=== PATIENT | male | born 1940 | race Asian ===

== ENCOUNTER 2017-01-06 21:52 | Inpatient (IN) | payer MEDICARE, BC ==
[~2017-01-06] VITALS: Ht 167.6 cm; Wt 58.6 kg
[2017-01-06 22:12] LABS: GLUCOSE,POINT OF CARE 130 MG/DL (70-110)
[2017-01-06] MEDS ORDERED: LEVE500T53 PO (22:13)
[2017-01-06] MEDS ORDERED: CLOP75 PO (22:13)
[2017-01-06] MEDS ORDERED: SERT100T12 PO (22:13)
[2017-01-06] MEDS ORDERED: SEVE800 PO (22:13)
[2017-01-06] MEDS ORDERED: FOLI0.8T43 PO (22:13)
[2017-01-06] MEDS ORDERED: ASPI-1182 PO (22:13)
[2017-01-06] MEDS ORDERED: VITA1TAB22 PO (22:13)
[2017-01-06] MEDS ORDERED: VITAD1000 PO (22:13)
[2017-01-06] MEDS ORDERED: DSS100 PO (22:13)
[2017-01-06] MEDS ORDERED: ATOR40TA28 PO (22:13)
[2017-01-06] MEDS ORDERED: SODIUM CHLORIDE 0.9% 250 ML IV ONE (22:15)
[2017-01-06 22:53] LABS: BASOPHILS % (AUTO) 0.3 % (0.0-2.0); EOSINOPHILS % (AUTO) 2.9 % (1.0-6.0); LYMPHOCYTES # (AUTO) 2.1 K/uL (1.0-4.8); LYMPHOCYTES % (AUTO) 15.3 % (22.0-44.0); MEAN CORPUSCULAR HEMOGLOBIN 36.5 pg (26.0-34.0); MEAN CORPUSCULAR VOLUME 107 fL (80-100); MONOCYTES # (AUTO) 0.8 K/uL (0.1-1.0); NEUTROPHILS # (AUTO) 10.3 K/uL (1.8-7.7); NEUTROPHILS % (AUTO) 75.5 % (40.0-70.0); PLATELET COUNT (AUTO) 194 K/uL (150-450); RED BLOOD CELL COUNT(AUTO) 1.88 MIL/uL (4.50-5.90); RED CELL DISTRIBUTION WIDTH 13.6 % (11.5-14.5); WHITE BLOOD COUNT (AUTO) 13.7 K/uL (4.5-11.0)
[2017-01-06 22:56] LABS: HEMATOCRIT 20.1 % (41-53)
[2017-01-06 22:57] LABS: HEMOGLOBIN 6.9 g/dL (13.5-17.5)
[2017-01-06 23:00] LABS: PROTHROMBIN TIME 10.4 SEC (9.4-11.6)
[2017-01-06 23:05] LABS: TROPONIN I 0.04 ng/mL (0.00-0.05)
[2017-01-06 23:23] LABS: ALANINE AMINOTRANSFERASE 13 U/L (12-78); ALBUMIN 3.7 g/dL (3.4-5.0); ANION GAP 11 mmol/L (8-16); ASPARTATE AMINOTRANSFERASE 6 U/L (15-37); BILIRUBIN,TOTAL 0.5 mg/dL (0.1-1.0); CALCIUM, TOTAL 8.9 mg/dL (8.8-10.5); CARBON DIOXIDE 28 mmol/L (22-29); CHLORIDE 95 mmol/L (98-107); CREATINE KINASE MB 0.8 ng/mL (0-5); CREATINE KINASE, TOTAL 95 U/L (39-308); CREATININE 8.17 mg/dL (0.60-1.30); GLOMERULAR FILTR. RATE CALC 6 mL/min (>60); SODIUM SERUM 134 mmol/L (136-145); TOTAL PROTEIN, SERUM 6.9 g/dL (6.4-8.2); UREA NITROGEN, BLOOD 59 mg/dL (7-18)
[2017-01-06 23:26] LABS: POTASSIUM 6.1 mmol/L (3.5-5.1)
[2017-01-06] MEDS ORDERED: ALBUTEROL SULFATE 2.5 MG/0.5 ML NEB SOLUTION NEB ONE (23:30)
[2017-01-06] MEDS ORDERED: SODIUM BICARBONATE [ADULT] 8.4% 50 MEQ/50 ML SYRINGE IVP ONE (23:30)
[2017-01-07] VITALS (19 sets, daily range): BP systolic 104–144; BP diastolic 43–80
[2017-01-07] MEDS ORDERED: ACETAMINOPHEN 325 MG TABLET PO PRN (01:15)
[2017-01-07] MEDS ORDERED: 0.9% SODIUM CHLORIDE 10 ML SYRINGE IVP PRN (01:15)
[2017-01-07] MEDS ORDERED: ONDANSETRON HCL 4 MG/2 ML VIAL IVP PRN (01:15)
[2017-01-07] MEDS ORDERED: PANTOPRAZOLE SODIUM 80 MG in SODIUM CHLORIDE 0.9% 100 ML IV SCH ×2 (01:30→11:00)
[2017-01-07] MEDS ORDERED: PANTOPRAZOLE SODIUM 80 MG in SODIUM CHLORIDE 0.9% 50 ML IV ONE (01:30)
[2017-01-07] MEDS ORDERED: PROPOFOL 1% 20 ML VIAL IVP ONE (01:56)
[2017-01-07] MEDS: ALBUTEROL SULFATE 2.5 MG/0.5 ML NEB SOLUTION NEB SCH ×3 (03:00→11:00)
[2017-01-07] MEDS ORDERED: 0.9% SODIUM CHLORIDE 5 ML NEB SOLUTION NEB ONE ×3 (07:24→14:05)
[2017-01-07] MEDS ORDERED: HydrALAZINE HCL 20 MG/ML VIAL IVP PRN (08:30)
[2017-01-07] MEDS ORDERED: PANTOPRAZOLE SODIUM 40 MG/VIAL IVP SCH (09:00)
[2017-01-07] MEDS ORDERED: FUROSEMIDE 20 MG/2 ML VIAL IVP SCH (09:00)
[2017-01-07] MEDS ORDERED: DEXTROSE 50%-WATER 25 GM/50 ML SYRINGE IVP ONE (09:15)
[2017-01-07] MEDS ORDERED: INSULIN REGULAR, HUMAN 100 UNITS/ML IVP ONE (09:15)
[2017-01-07] MEDS ORDERED: CALCIUM GLUCONATE 100 MG/ML 10 ML IVP ONE (09:15)
[2017-01-07 09:36] LABS: MAGNESIUM 2.6 mg/dL (1.80-2.40); PHOSPHORUS 3.8 mg/dL (2.5-4.9)
[2017-01-07 10:25] LABS: HEMATOCRIT 22.4 % (41-53); HEMOGLOBIN 7.7 g/dL (13.5-17.5); MEAN CORPUSCULAR HEMOGLOBIN 33.7 pg (26.0-34.0); MEAN CORPUSCULAR HGB CONC 34.4 G/dL (31.0-37.0); MEAN CORPUSCULAR VOLUME 98 fL (80-100); PLATELET COUNT (AUTO) 134 K/uL (150-450); RED BLOOD CELL COUNT(AUTO) 2.29 MIL/uL (4.50-5.90); RED CELL DISTRIBUTION WIDTH 19.1 % (11.5-14.5)
[2017-01-07 10:42] LABS: CALCIUM, TOTAL 8.6 mg/dL (8.8-10.5); CREATININE 8.94 mg/dL (0.60-1.30); POTASSIUM 5.4 mmol/L (3.5-5.1)
[2017-01-07] MEDS: LevETIRAcetam 500 MG in DEXTROSE 5%-WATER 100 ML IV SCH ×2 (11:01→22:30)
[2017-01-07 11:03] LABS: EOSINOPHILS % (MANUAL) 3 % (1-6); LYMPHOCYTES % (MANUAL) 17 % (22-44); RBC MORPHOLOGY COMMENT ABNORMAL RBC MORPH; TOTAL CELLS COUNTED 100
[2017-01-07] MEDS ORDERED: SODIUM CHLORIDE 0.9% 1,000 ML IV ONE ×2 (13:43→14:00)
[2017-01-07] MEDS ORDERED: PNEUMOCOCCAL VACCINE POLYVALENT 0.5 ML VIAL [PPSV23] IM ONE (17:15)
[2017-01-07] MEDS ORDERED: INFLUENZA VIRUS VACCINE QVS 2017-18 (3YR+)/PF 60 MCG/0.5 ML SYRINGE IM ONE (17:15)
[2017-01-07] MEDS: PEG 3350/NA SULF,BICARB,CL/KCL 4000 ML SOLUTION PO ONE ×2 (17:29→22:14)
[2017-01-07 18:31] LABS: HEMATOCRIT 23.3 % (41-53); HEMOGLOBIN 8.1 g/dL (13.5-17.5)
[2017-01-07] MEDS ORDERED: DEXTROSE 50%-WATER 25 GM/50 ML SYRINGE IVP PRN (22:15)
[2017-01-07] MEDS: PANTOPRAZOLE SODIUM 40 MG/VIAL IVP SCH (22:30)
[2017-01-08 00:47] LABS: HEMATOCRIT 23.6 % (41-53); HEMOGLOBIN 7.9 g/dL (13.5-17.5)
[2017-01-08 03:53] VITALS: BP 134/60
[2017-01-08 07:57] VITALS: BP 117/56
[2017-01-08 08:34] LABS: BASOPHILS % (AUTO) 0.3 % (0.0-2.0); EOSINOPHILS % (AUTO) 7.3 % (1.0-6.0); HEMATOCRIT 22.2 % (41-53); HEMOGLOBIN 7.7 g/dL (13.5-17.5); LYMPHOCYTES # (AUTO) 0.9 K/uL (1.0-4.8); LYMPHOCYTES % (AUTO) 13.8 % (22.0-44.0); MEAN CORPUSCULAR HEMOGLOBIN 34.3 pg (26.0-34.0); MEAN CORPUSCULAR HGB CONC 34.5 G/dL (31.0-37.0); MEAN CORPUSCULAR VOLUME 99 fL (80-100); MONOCYTES # (AUTO) 0.6 K/uL (0.1-1.0); MONOCYTES % (AUTO) 8.7 % (2.0-9.0); NEUTROPHILS # (AUTO) 4.6 K/uL (1.8-7.7); NEUTROPHILS % (AUTO) 69.9 % (40.0-70.0); PLATELET COUNT (AUTO) 141 K/uL (150-450); RED BLOOD CELL COUNT(AUTO) 2.24 MIL/uL (4.50-5.90); RED CELL DISTRIBUTION WIDTH 18.8 % (11.5-14.5); WHITE BLOOD COUNT (AUTO) 6.5 K/uL (4.5-11.0)
[2017-01-08 08:48] LABS: MAGNESIUM 1.7 mg/dL (1.80-2.40); PHOSPHORUS 3.4 mg/dL (2.5-4.9)
[2017-01-08 08:52] LABS: PROTHROMBIN TIME 10.5 SEC (9.4-11.6)
[2017-01-08 09:13] LABS: BAND NEUTROPHILS % (MANUAL) 5 % (1-5); EOSINOPHILS % (MANUAL) 1 % (1-6); LYMPHOCYTES % (MANUAL) 19 % (22-44); TOTAL CELLS COUNTED 100
[2017-01-08 09:14] LABS: RBC MORPHOLOGY COMMENT ABNORMAL RBC MORPH
[2017-01-08 09:21] LABS: ALBUMIN 2.8 g/dL (3.4-5.0); CALCIUM, TOTAL 8.4 mg/dL (8.8-10.5); CREATININE 4.59 mg/dL (0.60-1.30); POTASSIUM 4.5 mmol/L (3.5-5.1); TOTAL PROTEIN, SERUM 5.7 g/dL (6.4-8.2)
[2017-01-08] MEDS: PANTOPRAZOLE SODIUM 40 MG/VIAL IVP SCH ×2 (09:25→20:14)
[2017-01-08] MEDS: LevETIRAcetam 500 MG in DEXTROSE 5%-WATER 100 ML IV SCH ×2 (09:26→22:08)
[2017-01-08] MEDS: EPOETIN ALFA 10,000 UNITS/ML VIAL SQ SCH (09:26)
[2017-01-08 11:32] VITALS: BP 149/71
[2017-01-08 14:27] LABS: HEMATOCRIT 23.5 % (41-53)
[2017-01-08 16:19] VITALS: BP 110/49
[2017-01-08 19:58] LABS: GLUCOSE,POINT OF CARE 103 MG/DL (70-110)
[2017-01-08 19:58] LABS: GLUCOSE,POINT OF CARE 125 MG/DL (70-110)
[2017-01-08 19:58] LABS: GLUCOSE,POINT OF CARE 105 MG/DL (70-110)
[2017-01-08 19:58] LABS: GLUCOSE COMMENT 1 Juice/Food/D50 Given; GLUCOSE,POINT OF CARE 86 MG/DL (70-110)
[2017-01-08 19:58] LABS: GLUCOSE,POINT OF CARE 136 MG/DL (70-110)
[2017-01-08 19:58] LABS: GLUCOSE,POINT OF CARE 90 MG/DL (70-110)
[2017-01-08 20:04] VITALS: BP 142/61
[2017-01-08] MEDS: INSULIN ASPART 100 UNITS/ML SQ PRN (21:13)
[2017-01-08 21:44] LABS: HEMATOCRIT 25.2 % (41-53); HEMOGLOBIN 8.6 g/dL (13.5-17.5)
[2017-01-08 23:06] VITALS: BP 157/72
[2017-01-09 03:50] VITALS: BP 143/61
[2017-01-09 03:52] LABS: GLUCOSE,POINT OF CARE 145 MG/DL (70-110)
[2017-01-09 06:39] LABS: INR 0.9 (0.9-1.1); PROTHROMBIN TIME 9.9 SEC (9.4-11.6)
[2017-01-09 06:48] LABS: CALCIUM, TOTAL 8.5 mg/dL (8.8-10.5); CREATININE 6.27 mg/dL (0.60-1.30); POTASSIUM 4.7 mmol/L (3.5-5.1)
[2017-01-09 07:37] LABS: BASOPHILS % (AUTO) 0.3 % (0.0-2.0); EOSINOPHILS % (AUTO) 3.7 % (1.0-6.0); HEMATOCRIT 25.9 % (41-53); HEMOGLOBIN 8.8 g/dL (13.5-17.5); LYMPHOCYTES # (AUTO) 1.2 K/uL (1.0-4.8); MEAN CORPUSCULAR HGB CONC 34.1 G/dL (31.0-37.0); MEAN CORPUSCULAR VOLUME 100 fL (80-100); MONOCYTES # (AUTO) 0.6 K/uL (0.1-1.0); MONOCYTES % (AUTO) 5.8 % (2.0-9.0); NEUTROPHILS # (AUTO) 7.7 K/uL (1.8-7.7); NEUTROPHILS % (AUTO) 78.2 % (40.0-70.0); PLATELET COUNT (AUTO) 118 K/uL (150-450); RED CELL DISTRIBUTION WIDTH 18.9 % (11.5-14.5); WHITE BLOOD COUNT (AUTO) 9.8 K/uL (4.5-11.0)
[2017-01-09 07:39] VITALS: BP 149/75
[2017-01-09 08:03] LABS: GLUCOSE COMMENT 1 Juice/Food/D50 Given; GLUCOSE,POINT OF CARE 83 MG/DL (70-110)
[2017-01-09] MEDS: PANTOPRAZOLE SODIUM 40 MG/VIAL IVP SCH ×2 (08:31→20:07)
[2017-01-09 10:20] LABS: RBC MORPHOLOGY COMMENT ABNORMAL RBC MORPH
[2017-01-09] MEDS: LevETIRAcetam 500 MG in DEXTROSE 5%-WATER 100 ML IV SCH ×2 (10:22→22:00)
[2017-01-09 11:22] LABS: GLUCOSE,POINT OF CARE 133 MG/DL (70-110)
[2017-01-09 11:52] VITALS: BP 136/68
[2017-01-09] MEDS ORDERED: SODIUM CHLORIDE 0.9% 2,000 ML IV ONE (12:16)
[2017-01-09] MEDS ORDERED: LIDOCAINE/PRILOCAINE 2.5% 30 GM CREAM TP PRN (12:30)
[2017-01-09 15:17] VITALS: BP 107/54
[2017-01-09] MEDS ORDERED: MANNITOL 25%-12.5 GM/50 ML VIAL IVP PRN (18:45)
[2017-01-09 19:51] VITALS: BP 109/59
[2017-01-10] VITALS (7 sets, daily range): BP systolic 105–120; BP diastolic 43–90
[2017-01-10 00:38] LABS: GLUCOSE,POINT OF CARE 110 MG/DL (70-110)
[2017-01-10 06:31] LABS: BASOPHILS % (AUTO) 0.3 % (0.0-2.0); EOSINOPHILS % (AUTO) 6.5 % (1.0-6.0); HEMATOCRIT 24.2 % (41-53); HEMOGLOBIN 8.2 g/dL (13.5-17.5); LYMPHOCYTES # (AUTO) 1.3 K/uL (1.0-4.8); LYMPHOCYTES % (AUTO) 20.2 % (22.0-44.0); MEAN CORPUSCULAR HEMOGLOBIN 34.2 pg (26.0-34.0); MEAN CORPUSCULAR VOLUME 100 fL (80-100); MONOCYTES # (AUTO) 0.7 K/uL (0.1-1.0); MONOCYTES % (AUTO) 10.4 % (2.0-9.0); NEUTROPHILS % (AUTO) 62.6 % (40.0-70.0); PLATELET COUNT (AUTO) 123 K/uL (150-450); RED BLOOD CELL COUNT(AUTO) 2.41 MIL/uL (4.50-5.90); RED CELL DISTRIBUTION WIDTH 18.4 % (11.5-14.5); WHITE BLOOD COUNT (AUTO) 6.3 K/uL (4.5-11.0)
[2017-01-10 07:02] LABS: GLUCOSE,POINT OF CARE 90 MG/DL (70-110)
[2017-01-10] MEDS: PANTOPRAZOLE SODIUM 40 MG/VIAL IVP SCH ×2 (09:07→20:39)
[2017-01-10] MEDS: EPOETIN ALFA 10,000 UNITS/ML VIAL SQ SCH (09:07)
[2017-01-10 09:40] LABS: RBC MORPHOLOGY COMMENT ABNORMAL RBC MORPH
[2017-01-10] MEDS: LevETIRAcetam 500 MG in DEXTROSE 5%-WATER 100 ML IV SCH ×2 (11:12→21:18)
[2017-01-10 12:19] LABS: MAGNESIUM 1.8 mg/dL (1.80-2.40); POTASSIUM 4.5 mmol/L (3.5-5.1)
[2017-01-10] MEDS ORDERED: DOCUSATE SODIUM 100 MG CAPSULE PO SCH (16:00)
[2017-01-10] MEDS: DOCUSATE SODIUM 100 MG CAPSULE PO SCH ×2 (17:08→20:39)
[2017-01-10] MEDS: INSULIN ASPART 100 UNITS/ML SQ PRN (18:18)
[2017-01-11 04:46] VITALS: BP 136/63
[2017-01-11 07:20] VITALS: BP 143/54
[2017-01-11 07:31] LABS: BASOPHILS % (AUTO) 0.5 % (0.0-2.0); EOSINOPHILS % (AUTO) 7.4 % (1.0-6.0); HEMOGLOBIN 8.3 g/dL (13.5-17.5); LYMPHOCYTES # (AUTO) 1.4 K/uL (1.0-4.8); LYMPHOCYTES % (AUTO) 17.2 % (22.0-44.0); MEAN CORPUSCULAR HEMOGLOBIN 34.8 pg (26.0-34.0); MEAN CORPUSCULAR HGB CONC 34.7 G/dL (31.0-37.0); MEAN CORPUSCULAR VOLUME 101 fL (80-100); MONOCYTES # (AUTO) 0.7 K/uL (0.1-1.0); MONOCYTES % (AUTO) 8.3 % (2.0-9.0); NEUTROPHILS # (AUTO) 5.3 K/uL (1.8-7.7); NEUTROPHILS % (AUTO) 66.6 % (40.0-70.0); RED BLOOD CELL COUNT(AUTO) 2.39 MIL/uL (4.50-5.90); RED CELL DISTRIBUTION WIDTH 18.4 % (11.5-14.5); WHITE BLOOD COUNT (AUTO) 7.9 K/uL (4.5-11.0)
[2017-01-11] MEDS: DOCUSATE SODIUM 100 MG CAPSULE PO SCH ×3 (08:06→20:33)
[2017-01-11] MEDS: PANTOPRAZOLE SODIUM 40 MG/VIAL IVP SCH ×2 (08:06→20:33)
[2017-01-11 08:28] LABS: PLATELET COUNT (AUTO) 147 K/uL (150-450)
[2017-01-11 08:29] LABS: RBC MORPHOLOGY COMMENT ABNORMAL RBC MORPH
[2017-01-11] MEDS ORDERED: MUPIROCIN CALCIUM 2% 22 GM OINTMENT NASAL SCH (09:00)
[2017-01-11] MEDS: LevETIRAcetam 500 MG in DEXTROSE 5%-WATER 100 ML IV SCH ×2 (11:04→22:00)
[2017-01-11 12:01] VITALS: BP 143/51
[2017-01-11 12:10] LABS: GLUCOSE,POINT OF CARE 104 MG/DL (70-110)
[2017-01-11] MEDS ORDERED: MANNITOL 25%-12.5 GM/50 ML VIAL IVP PRN (13:00)
[2017-01-11] MEDS ORDERED: LIDOCAINE HCL 3% CREAM 85 GM TUBE TP ONE (13:15)
[2017-01-11 15:34] VITALS: BP 128/67
[2017-01-11] MEDS: METOPROLOL TARTRATE 25 MG TABLET PO SCH ×2 (16:35→23:00)
[2017-01-11 18:08] LABS: CALCIUM, TOTAL 8.6 mg/dL (8.8-10.5); CREATININE 4.03 mg/dL (0.60-1.30); MAGNESIUM 1.7 mg/dL (1.80-2.40); POTASSIUM 3.8 mmol/L (3.5-5.1)
[2017-01-11] MEDS ORDERED: MAGNESIUM OXIDE 400 MG TABLET PO ONE (19:30)
[2017-01-11 19:43] LABS: GLUCOSE COMMENT 1 Received Meds; GLUCOSE,POINT OF CARE 142 MG/DL (70-110)
[2017-01-11 19:43] LABS: GLUCOSE,POINT OF CARE 139 MG/DL (70-110)
[2017-01-11 19:43] LABS: GLUCOSE COMMENT 1 Received Meds; GLUCOSE,POINT OF CARE 194 MG/DL (70-110)
[2017-01-11 19:52] LABS: GLUCOSE,POINT OF CARE 125 MG/DL (70-110)
[2017-01-11 20:00] VITALS: BP 112/55
[2017-01-11] MEDS: MUPIROCIN CALCIUM 2% 22 GM OINTMENT NASAL SCH (20:33)
[2017-01-11] MEDS: INSULIN ASPART 100 UNITS/ML SQ PRN (20:45)
[2017-01-12] VITALS (7 sets, daily range): BP systolic 110–162; BP diastolic 56–76
[2017-01-12 06:14] LABS: CALCIUM, TOTAL 8.5 mg/dL (8.8-10.5); CREATININE 4.86 mg/dL (0.60-1.30); MAGNESIUM 1.7 mg/dL (1.80-2.40); POTASSIUM 4.6 mmol/L (3.5-5.1)
[2017-01-12] MEDS: DOCUSATE SODIUM 100 MG CAPSULE PO SCH ×3 (09:21→20:29)
[2017-01-12] MEDS: PANTOPRAZOLE SODIUM 40 MG/VIAL IVP SCH ×2 (09:21→20:30)
[2017-01-12] MEDS: METOPROLOL TARTRATE 25 MG TABLET PO SCH ×2 (09:21→20:29)
[2017-01-12] MEDS: MUPIROCIN CALCIUM 2% 22 GM OINTMENT NASAL SCH ×2 (09:21→20:28)
[2017-01-12] MEDS: LevETIRAcetam 500 MG in DEXTROSE 5%-WATER 100 ML IV SCH ×2 (09:23→22:34)
[2017-01-12] MEDS ORDERED: MAGNESIUM SULFATE 1 GM in DEXTROSE 5%-WATER 50 ML IV ONE (11:30)
[2017-01-12 12:07] LABS: GLUCOSE,POINT OF CARE 117 MG/DL (70-110)
[2017-01-12 17:13] LABS: GLUCOSE,POINT OF CARE 99 MG/DL (70-110)
[2017-01-12 17:18] LABS: GLUCOSE,POINT OF CARE 204 MG/DL (70-110)
[2017-01-12] MEDS: INSULIN ASPART 100 UNITS/ML SQ PRN (17:59)
[2017-01-12 19:58] LABS: GLUCOSE COMMENT 1 Received Meds; GLUCOSE,POINT OF CARE 169 MG/DL (70-110)
[2017-01-12 19:58] LABS: GLUCOSE,POINT OF CARE 112 MG/DL (70-110)
[2017-01-13 04:48] VITALS: BP 129/69
[2017-01-13 07:47] VITALS: BP 117/76
[2017-01-13] MEDS: DOCUSATE SODIUM 100 MG CAPSULE PO SCH ×3 (09:17→20:42)
[2017-01-13] MEDS: METOPROLOL TARTRATE 25 MG TABLET PO SCH ×2 (09:17→20:42)
[2017-01-13] MEDS: LevETIRAcetam 500 MG in DEXTROSE 5%-WATER 100 ML IV SCH ×2 (09:17→22:28)
[2017-01-13] MEDS: PANTOPRAZOLE SODIUM 40 MG/VIAL IVP SCH ×2 (09:17→20:42)
[2017-01-13] MEDS ORDERED: SODIUM CHLORIDE 0.9% 250 ML IV ONE (09:21)
[2017-01-13] MEDS: MUPIROCIN CALCIUM 2% 22 GM OINTMENT NASAL SCH ×2 (09:22→20:43)
[2017-01-13] MEDS: EPOETIN ALFA 10,000 UNITS/ML VIAL SQ SCH (09:22)
[2017-01-13 11:28] VITALS: BP 133/88
[2017-01-13 14:47] LABS: GLUCOSE,POINT OF CARE 102 MG/DL (70-110)
[2017-01-13 14:48] LABS: GLUCOSE,POINT OF CARE 136 MG/DL (70-110)
[2017-01-13 14:48] LABS: GLUCOSE,POINT OF CARE 83 MG/DL (70-110)
[2017-01-13 15:16] VITALS: BP 143/95
[2017-01-13 19:23] VITALS: BP 107/46
[2017-01-13 20:28] LABS: GLUCOSE COMMENT 1 Received Meds; GLUCOSE,POINT OF CARE 147 MG/DL (70-110)
[2017-01-13 23:24] VITALS: BP 130/52
[2017-01-13 23:28] LABS: GLUCOSE,POINT OF CARE 122 MG/DL (70-110)
[2017-01-14 04:30] VITALS: BP 142/69
[2017-01-14 06:48] LABS: GLUCOSE,POINT OF CARE 103 MG/DL (70-110)
[2017-01-14 08:16] VITALS: BP 116/58
[2017-01-14] MEDS: PANTOPRAZOLE SODIUM 40 MG/VIAL IVP SCH (09:00)
[2017-01-14] MEDS: DOCUSATE SODIUM 100 MG CAPSULE PO SCH ×2 (09:00→16:00)
[2017-01-14] MEDS ORDERED: MANNITOL 25%-12.5 GM/50 ML VIAL IVP PRN (10:15)
[2017-01-14] MEDS ORDERED: LIDOCAINE HCL/PF 1% 2 ML VIAL ID PRN (10:45)
[2017-01-14 11:08] VITALS: BP 125/98
[2017-01-14] MEDS ORDERED: LIDOCAINE HCL/PF 1% 2 ML VIAL INJ ONE (12:00)
[2017-01-14 12:29] LABS: CALCIUM, TOTAL 8.5 mg/dL (8.8-10.5); CREATININE 2.9 mg/dL (0.60-1.30); MAGNESIUM 1.6 mg/dL (1.80-2.40); POTASSIUM 3.1 mmol/L (3.5-5.1)
[2017-01-14] MEDS: METOPROLOL TARTRATE 25 MG TABLET PO SCH (13:00)
[2017-01-14] MEDS: MUPIROCIN CALCIUM 2% 22 GM OINTMENT NASAL SCH (14:19)
[2017-01-14 14:58] LABS: GLUCOSE,POINT OF CARE 103 MG/DL (70-110)
[2017-01-14] MEDS ORDERED: SODIUM CHLORIDE 0.9% 250 ML IV ONE ×2 (15:04→16:15)
[2017-01-14] MEDS: LevETIRAcetam 500 MG in DEXTROSE 5%-WATER 100 ML IV SCH (15:39)
[2017-01-14 16:38] LABS: CALCIUM, TOTAL 7.6 mg/dL (8.8-10.5); CREATININE 3.89 mg/dL (0.60-1.30); POTASSIUM 3.7 mmol/L (3.5-5.1)
[2017-01-14 16:59] VITALS: BP 120/53
[2017-01-15] MEDS ORDERED: ASPIRIN 81 MG CHEWABLE TABLET PO SCH (09:00)
== END 2017-01-14 19:30 | DRG 82 ==
LOC: EMS 21:55 → 5S 01-07 00:24 → 5N 01-11 03:00
PROVIDERS: ADMIT Hospitalist; ATTEND Hospitalist
PROC: 30233N1 Transfusion of Nonautologous Red Blood Cells into Peripheral Vein, Percutaneous Approach (ICD-10-PCS; 2017-01-07)
PROC: 3E0234Z Introduction of Serum, Toxoid and Vaccine into Muscle, Percutaneous Approach (ICD-10-PCS; 2017-01-07)
PROC: 5A1D70Z Performance of Urinary Filtration, Intermittent, Less than 6 Hours Per Day (ICD-10-PCS; 2017-01-07)
PROC: 0DJ08ZZ Inspection of Upper Intestinal Tract, Via Natural or Artificial Opening Endoscopic (ICD-10-PCS; principal; 2017-01-07 15:00)
PROC: 5A1D70Z Performance of Urinary Filtration, Intermittent, Less than 6 Hours Per Day (ICD-10-PCS; 2017-01-09)
PROC: 5A1D70Z Performance of Urinary Filtration, Intermittent, Less than 6 Hours Per Day (ICD-10-PCS; 2017-01-11)
PROC: 5A1D70Z Performance of Urinary Filtration, Intermittent, Less than 6 Hours Per Day (ICD-10-PCS; 2017-01-14)
DX: S06.5X9A Traumatic subdural hemorrhage with loss of consciousness of unspecified duration, initial encounter (principal); N18.6 End stage renal disease; I47.2 Ventricular tachycardia; E11.22 Type 2 diabetes mellitus with diabetic chronic kidney disease; E87.5 Hyperkalemia; E83.39 Other disorders of phosphorus metabolism; I27.20 Pulmonary hypertension, unspecified; K92.2 Gastrointestinal hemorrhage, unspecified; G81.90 Hemiplegia, unspecified affecting unspecified side; I12.0 Hypertensive chronic kidney disease with stage 5 chronic kidney disease or end stage renal disease; D64.9 Anemia, unspecified; R55 Syncope and collapse; I25.10 Atherosclerotic heart disease of native coronary artery without angina pectoris; F01.50 Vascular dementia, unspecified severity, without behavioral disturbance, psychotic disturbance, mood disturbance, and anxiety; I25.5 Ischemic cardiomyopathy; E78.00 Pure hypercholesterolemia, unspecified; G40.909 Epilepsy, unspecified, not intractable, without status epilepticus; G47.33 Obstructive sleep apnea (adult) (pediatric); I49.3 Ventricular premature depolarization; K59.00 Constipation, unspecified; W18.39XA Other fall on same level, initial encounter; W19.XXXA Unspecified fall, initial encounter; Z74.01 Bed confinement status; Z79.82 Long term (current) use of aspirin; Z95.5 Presence of coronary angioplasty implant and graft; Z99.2 Dependence on renal dialysis; Z22.322 Carrier or suspected carrier of Methicillin resistant Staphylococcus aureus; Z23 Encounter for immunization; Z88.8 Allergy status to other drugs, medicaments and biological substances; Y93.89 Activity, other specified; Y92.89 Other specified places as the place of occurrence of the external cause; Y99.8 Other external cause status
CPT/HCPCS: 36430; 70450; 72125; 82271; 82962; 83540; 83550; 83735; 84100; 84132; 85007; 85014; 85018; 85576; 86850; 86900; 86901; 86920; 87040; 87081; 87340; 90935; 93005; 93306; 94640; 96361; 96374; 97116; 97162; 97166; 97530; 99291; C9113; J0360; J0610; J0712; J0885; J1815; J1940; J2704; J3475; J3490; J7030; J7050; J7060; P9016

== ENCOUNTER 2017-02-20 11:45 | Inpatient (IN) | payer MEDICARE, BC ==
[~2017-02-20] VITALS: Ht 170.2 cm; Wt 56.3 kg
[~2017-02-20 11:45] MED LIST: ATOR40TA28 PO; DSS100 PO; FOLI0.8T43 PO; LEVE500T53 PO; SERT100T12 PO; SEVE800 PO; VITA1TAB22 PO; VITAD1000 PO
[2017-02-20] MEDS ORDERED: METO25 PO (11:50)
[2017-02-20] MEDS ORDERED: PANT40TA25 PO (11:50)
[2017-02-20] MEDS ORDERED: ASPIRIN 325 MG EC TABLET PO ONE (12:00)
[2017-02-20 12:04] LABS: BASOPHILS # (AUTO) 0.01 K/uL (0.00-0.20); BASOPHILS % (AUTO) 0.1 % (0.0-2.0); EOSINOPHILS # (AUTO) 0.54 K/uL (0.00-0.70); EOSINOPHILS % (AUTO) 5.15 % (1.0-6.0); HEMATOCRIT 29.4 % (41-53); HEMOGLOBIN 9.6 g/dL (13.5-17.5); LYMPHOCYTES # (AUTO) 0.9 K/uL (1.0-4.8); LYMPHOCYTES % (AUTO) 8.3 % (22.0-44.0); MEAN CORPUSCULAR HGB CONC 32.6 G/dL (31.0-37.0); MEAN CORPUSCULAR VOLUME 101 fL (80-100); MONOCYTES # (AUTO) 0.9 K/uL (0.1-1.0); MONOCYTES % (AUTO) 8.6 % (2.0-9.0); NEUTROPHILS # (AUTO) 8.2 K/uL (1.8-7.7); NEUTROPHILS % (AUTO) 77.8 % (40.0-70.0); PLATELET COUNT (AUTO) 252 K/uL (150-450); RED CELL DISTRIBUTION WIDTH 15.4 % (11.5-14.5); WHITE BLOOD COUNT (AUTO) 10.6 K/uL (4.5-11.0)
[2017-02-20 12:14] LABS: PROTHROMBIN TIME 10.6 SEC (9.4-11.6)
[2017-02-20 12:17] LABS: ANION GAP 8 mmol/L (8-16); CALCIUM, TOTAL 8.1 mg/dL (8.8-10.5); CARBON DIOXIDE 30 mmol/L (22-29); CHLORIDE 94 mmol/L (98-107); CREATININE 7.45 mg/dL (0.60-1.30); GLOMERULAR FILTR. RATE CALC 7 mL/min (>60); POTASSIUM 4.3 mmol/L (3.5-5.1); SODIUM SERUM 132 mmol/L (136-145); UREA NITROGEN, BLOOD 27 mg/dL (7-18)
[2017-02-20 12:21] LABS: ALANINE AMINOTRANSFERASE 11 U/L (12-78); ALBUMIN 2.6 g/dL (3.4-5.0); ASPARTATE AMINOTRANSFERASE 6 U/L (15-37); B-TYPE NATRIURETIC PEPTIDE 724 pg/mL (0-100); BILIRUBIN,TOTAL 0.4 mg/dL (0.1-1.0); CREATINE KINASE, TOTAL 28 U/L (39-308); TOTAL PROTEIN, SERUM 6.9 g/dL (6.4-8.2)
[2017-02-20 12:37] LABS: RBC MORPHOLOGY COMMENT ABNORMAL RBC MORPH
[2017-02-20] MEDS ORDERED: ACETAMINOPHEN 325 MG TABLET PO PRN ×2 (13:45→15:00)
[2017-02-20] MEDS ORDERED: 0.9% SODIUM CHLORIDE 10 ML SYRINGE IVP PRN (13:45)
[2017-02-20] MEDS ORDERED: HYDROCODONE/ACETAMINOPHEN 5-325 MG TABLET PO PRN (15:00)
[2017-02-20] MEDS ORDERED: MORPHINE SULFATE 2 MG/ML SYRINGE IVP PRN (15:00)
[2017-02-20] MEDS ORDERED: ZOLPIDEM TARTRATE 5 MG TABLET PO PRN (15:00)
[2017-02-20] MEDS ORDERED: BISACODYL 10 MG RECTAL RECTAL SUPPOSITORY PR PRN (15:00)
[2017-02-20] MEDS ORDERED: ONDANSETRON HCL 4 MG/2 ML VIAL IVP PRN (15:00)
[2017-02-20] MEDS ORDERED: MAGNESIUM HYDROXIDE SUSPENSION 30 ML UDCUP PO PRN (15:00)
[2017-02-20] MEDS ORDERED: LIDOCAINE/PRILOCAINE 2.5% 30 GM CREAM TP PRN (15:45)
[2017-02-20] MEDS ORDERED: MANNITOL 25%-12.5 GM/50 ML VIAL IVP PRN (16:30)
[2017-02-20 19:49] VITALS: BP 151/75
[2017-02-20] MEDS: METOPROLOL TARTRATE 25 MG TABLET PO SCH (20:47)
[2017-02-20] MEDS: DOCUSATE SODIUM 100 MG CAPSULE PO SCH (20:47)
[2017-02-20] MEDS: ATORVASTATIN CALCIUM 40 MG TABLET PO SCH (20:47)
[2017-02-20] MEDS: LevETIRAcetam 500 MG TABLET PO SCH (20:47)
[2017-02-20] MEDS: SEVELAMER CARBONATE 800 MG TABLET PO SCH (20:54)
[2017-02-20] MEDS: NITROGLYCERIN 2% (1 GM=INCH) PACKET TP SCH (20:57)
[2017-02-20] MEDS: HEPARIN SODIUM,PORCINE 5,000 UNITS/ML VIAL SQ SCH (20:58)
[2017-02-20] MEDS ORDERED: ATORVASTATIN CALCIUM 40 MG TABLET PO SCH (21:00)
[2017-02-20] MEDS ORDERED: METOPROLOL TARTRATE 25 MG TABLET PO SCH (21:00)
[2017-02-21] VITALS (10 sets, daily range): BP systolic 99–141; BP diastolic 50–77
[2017-02-21] MEDS: HEPARIN SODIUM,PORCINE 5,000 UNITS/ML VIAL SQ SCH ×4 (00:27→23:58)
[2017-02-21] MEDS: NITROGLYCERIN 2% (1 GM=INCH) PACKET TP SCH ×4 (00:27→23:58)
[2017-02-21 07:37] LABS: BASOPHILS % (AUTO) 0.3 % (0.0-2.0); EOSINOPHILS % (AUTO) 7.5 % (1.0-6.0); HEMATOCRIT 28.8 % (41-53); HEMOGLOBIN 9.7 g/dL (13.5-17.5); LYMPHOCYTES # (AUTO) 0.9 K/uL (1.0-4.8); LYMPHOCYTES % (AUTO) 11.2 % (22.0-44.0); MEAN CORPUSCULAR HEMOGLOBIN 33.5 pg (26.0-34.0); MEAN CORPUSCULAR HGB CONC 33.7 G/dL (31.0-37.0); MEAN CORPUSCULAR VOLUME 100 fL (80-100); MONOCYTES # (AUTO) 0.9 K/uL (0.1-1.0); MONOCYTES % (AUTO) 10.8 % (2.0-9.0); NEUTROPHILS # (AUTO) 5.8 K/uL (1.8-7.7); NEUTROPHILS % (AUTO) 70.2 % (40.0-70.0); PLATELET COUNT (AUTO) 230 K/uL (150-450); RED CELL DISTRIBUTION WIDTH 14.9 % (11.5-14.5); WHITE BLOOD COUNT (AUTO) 8.2 K/uL (4.5-11.0)
[2017-02-21] MEDS: SEVELAMER CARBONATE 800 MG TABLET PO SCH ×3 (08:00→20:11)
[2017-02-21 08:07] LABS: ALBUMIN 2.6 g/dL (3.4-5.0); BILIRUBIN,TOTAL 0.6 mg/dL (0.1-1.0); CALCIUM, TOTAL 8.5 mg/dL (8.8-10.5); CHOL/HDL RATIO 1.9 (4.2-7.3); CREATININE 5.17 mg/dL (0.60-1.30); POTASSIUM 4.4 mmol/L (3.5-5.1); TOTAL PROTEIN, SERUM 6.9 g/dL (6.4-8.2)
[2017-02-21 08:25] LABS: HEMOGLOBIN A1C 5.2 % (4.5-6.2)
[2017-02-21] MEDS: -HEMODIALYSIS NOTE- MISC SCH (09:00)
[2017-02-21] MEDS ORDERED: ASPIRIN 81 MG CHEWABLE TABLET PO SCH (09:00)
[2017-02-21] MEDS ORDERED: REGADENOSON 0.4 MG/5 ML PF SYRINGE IVP ONE ×2 (11:12→14:19)
[2017-02-21] MEDS ORDERED: SESTAMIBI TC99M/UD ISOTOPE 1 EA INJ INJ ONE ×2 (11:20→13:40)
[2017-02-21] MEDS: DOCUSATE SODIUM 100 MG CAPSULE PO SCH ×2 (16:01→20:11)
[2017-02-21] MEDS: SERTRALINE HCL 100 MG TABLET PO SCH (16:02)
[2017-02-21] MEDS: LevETIRAcetam 500 MG TABLET PO SCH ×2 (16:02→20:11)
[2017-02-21] MEDS: VITAMIN B COMP/VIT C/FOLIC ACID CAPSULE PO SCH (16:02)
[2017-02-21] MEDS: PANTOPRAZOLE SODIUM 40 MG DR TABLET PO SCH (16:02)
[2017-02-21] MEDS: CHOLECALCIFEROL (VIT D3) 1,000 UNITS TABLET PO SCH (16:02)
[2017-02-21] MEDS: METOPROLOL TARTRATE 25 MG TABLET PO SCH ×2 (16:03→23:58)
[2017-02-21] MEDS: ATORVASTATIN CALCIUM 40 MG TABLET PO SCH (20:11)
[2017-02-22 03:54] VITALS: BP 135/70
[2017-02-22 06:30] LABS: BASOPHILS % (AUTO) 0.4 % (0.0-2.0); EOSINOPHILS % (AUTO) 4.7 % (1.0-6.0); HEMATOCRIT 29.5 % (41-53); HEMOGLOBIN 9.9 g/dL (13.5-17.5); LYMPHOCYTES % (AUTO) 9.1 % (22.0-44.0); MEAN CORPUSCULAR HEMOGLOBIN 33.2 pg (26.0-34.0); MEAN CORPUSCULAR HGB CONC 33.4 G/dL (31.0-37.0); MEAN CORPUSCULAR VOLUME 99 fL (80-100); MONOCYTES % (AUTO) 8.8 % (2.0-9.0); NEUTROPHILS # (AUTO) 8.3 K/uL (1.8-7.7); PLATELET COUNT (AUTO) 271 K/uL (150-450); RED BLOOD CELL COUNT(AUTO) 2.97 MIL/uL (4.50-5.90); RED CELL DISTRIBUTION WIDTH 15.2 % (11.5-14.5); WHITE BLOOD COUNT (AUTO) 10.8 K/uL (4.5-11.0)
[2017-02-22 06:52] LABS: CALCIUM, TOTAL 8.8 mg/dL (8.8-10.5); CREATININE 6.79 mg/dL (0.60-1.30); POTASSIUM 4.3 mmol/L (3.5-5.1)
[2017-02-22 07:17] VITALS: BP 157/52
[2017-02-22] MEDS ORDERED: EPOETIN ALFA 10,000 UNITS/ML VIAL SQ SCH (09:00)
[2017-02-22] MEDS: -HEMODIALYSIS NOTE- MISC SCH (09:00)
[2017-02-22 11:37] VITALS: BP 128/48
[2017-02-22] MEDS: DOCUSATE SODIUM 100 MG CAPSULE PO SCH ×2 (13:15→20:34)
[2017-02-22] MEDS: PANTOPRAZOLE SODIUM 40 MG DR TABLET PO SCH (13:15)
[2017-02-22] MEDS: HEPARIN SODIUM,PORCINE 5,000 UNITS/ML VIAL SQ SCH ×2 (13:15→16:00)
[2017-02-22] MEDS: CHOLECALCIFEROL (VIT D3) 1,000 UNITS TABLET PO SCH (13:15)
[2017-02-22] MEDS: VITAMIN B COMP/VIT C/FOLIC ACID CAPSULE PO SCH (13:15)
[2017-02-22] MEDS: LevETIRAcetam 500 MG TABLET PO SCH ×2 (13:15→20:33)
[2017-02-22] MEDS: ASPIRIN 81 MG EC TABLET PO SCH (13:15)
[2017-02-22] MEDS: SEVELAMER CARBONATE 800 MG TABLET PO SCH ×3 (13:16→17:53)
[2017-02-22] MEDS: NITROGLYCERIN 2% (1 GM=INCH) PACKET TP SCH ×2 (13:16→17:53)
[2017-02-22] MEDS: SERTRALINE HCL 100 MG TABLET PO SCH (13:16)
[2017-02-22 15:39] VITALS: BP 105/50
[2017-02-22 19:40] VITALS: BP 110/68
[2017-02-22] MEDS: METOPROLOL TARTRATE 25 MG TABLET PO SCH (20:33)
[2017-02-22] MEDS: ATORVASTATIN CALCIUM 40 MG TABLET PO SCH (20:33)
[2017-02-23] MEDS: NITROGLYCERIN 2% (1 GM=INCH) PACKET TP SCH ×2 (00:04→07:56)
[2017-02-23] MEDS: HEPARIN SODIUM,PORCINE 5,000 UNITS/ML VIAL SQ SCH ×2 (00:04→07:56)
[2017-02-23 00:16] VITALS: BP 109/51
[2017-02-23 06:02] VITALS: BP 128/69
[2017-02-23] MEDS ORDERED: ASPI81 PO (07:26)
[2017-02-23] MEDS ORDERED: EPOE10I SQ (07:27)
[2017-02-23] MEDS ORDERED: HEPA500018 SQ (07:29)
[2017-02-23] MEDS ORDERED: NTP TD (07:30)
[2017-02-23] MEDS ORDERED: BISA5TAB12 PR (07:32)
[2017-02-23] MEDS ORDERED: HYDR-309 PO (07:33)
[2017-02-23] MEDS ORDERED: MOM30 PO (07:34)
[2017-02-23] MEDS ORDERED: ZOLP5 PO (07:35)
[2017-02-23] MEDS: SEVELAMER CARBONATE 800 MG TABLET PO SCH ×2 (07:55→12:06)
[2017-02-23] MEDS: LevETIRAcetam 500 MG TABLET PO SCH (07:55)
[2017-02-23] MEDS: VITAMIN B COMP/VIT C/FOLIC ACID CAPSULE PO SCH (07:55)
[2017-02-23] MEDS: ASPIRIN 81 MG EC TABLET PO SCH (07:55)
[2017-02-23] MEDS: DOCUSATE SODIUM 100 MG CAPSULE PO SCH (07:55)
[2017-02-23] MEDS: METOPROLOL TARTRATE 25 MG TABLET PO SCH (07:55)
[2017-02-23] MEDS: PANTOPRAZOLE SODIUM 40 MG DR TABLET PO SCH (07:56)
[2017-02-23] MEDS: CHOLECALCIFEROL (VIT D3) 1,000 UNITS TABLET PO SCH (07:56)
[2017-02-23] MEDS: SERTRALINE HCL 100 MG TABLET PO SCH (07:57)
[2017-02-23 08:08] LABS: ALBUMIN 2.5 g/dL (3.4-5.0); BILIRUBIN,TOTAL 0.4 mg/dL (0.1-1.0); CREATININE 5.16 mg/dL (0.60-1.30); MAGNESIUM 1.9 mg/dL (1.80-2.40); POTASSIUM 4.7 mmol/L (3.5-5.1); TOTAL PROTEIN, SERUM 6.8 g/dL (6.4-8.2)
[2017-02-23 08:17] VITALS: BP 106/70
[2017-02-23 08:25] LABS: BASOPHILS # (AUTO) 0.06 K/uL (0.00-0.20); BASOPHILS % (AUTO) 0.8 % (0.0-2.0); EOSINOPHILS # (AUTO) 0.49 K/uL (0.00-0.70); EOSINOPHILS % (AUTO) 5.77 % (1.0-6.0); HEMATOCRIT 29.2 % (41-53); HEMOGLOBIN 9.5 g/dL (13.5-17.5); LYMPHOCYTES # (AUTO) 1.2 K/uL (1.0-4.8); LYMPHOCYTES % (AUTO) 14.1 % (22.0-44.0); MEAN CORPUSCULAR HEMOGLOBIN 32.7 pg (26.0-34.0); MEAN CORPUSCULAR HGB CONC 32.5 G/dL (31.0-37.0); MEAN CORPUSCULAR VOLUME 101 fL (80-100); MONOCYTES # (AUTO) 0.9 K/uL (0.1-1.0); NEUTROPHILS # (AUTO) 5.8 K/uL (1.8-7.7); NEUTROPHILS % (AUTO) 68.4 % (40.0-70.0); PLATELET COUNT (AUTO) 265 K/uL (150-450); RED BLOOD CELL COUNT(AUTO) 2.91 MIL/uL (4.50-5.90); RED CELL DISTRIBUTION WIDTH 15.5 % (11.5-14.5); WHITE BLOOD COUNT (AUTO) 8.4 K/uL (4.5-11.0)
[2017-02-23 10:56] LABS: RBC MORPHOLOGY COMMENT ABNORMAL RBC MORPH
[2017-02-23 11:49] VITALS: BP 111/64
[2017-02-23] MEDS ORDERED: OXYGEN THERAPY IH SCH (20:00)
== END 2017-02-23 14:20 | DRG 314 ==
LOC: EMS 11:47 → 5S 14:34
PROVIDERS: ADMIT Internal Medicine; ATTEND Internal Medicine
PROC: 5A1D70Z Performance of Urinary Filtration, Intermittent, Less than 6 Hours Per Day (ICD-10-PCS; principal; 2017-02-20)
PROC: 5A1D70Z Performance of Urinary Filtration, Intermittent, Less than 6 Hours Per Day (ICD-10-PCS; 2017-02-22)
DX: I30.9 Acute pericarditis, unspecified (principal); I50.31 Acute diastolic (congestive) heart failure; I13.2 Hypertensive heart and chronic kidney disease with heart failure and with stage 5 chronic kidney disease, or end stage renal disease; E11.22 Type 2 diabetes mellitus with diabetic chronic kidney disease; I27.20 Pulmonary hypertension, unspecified; N18.6 End stage renal disease; N25.81 Secondary hyperparathyroidism of renal origin; G40.909 Epilepsy, unspecified, not intractable, without status epilepticus; I25.2 Old myocardial infarction; I69.391 Dysphagia following cerebral infarction; I69.319 Unspecified symptoms and signs involving cognitive functions following cerebral infarction; R13.10 Dysphagia, unspecified; E78.5 Hyperlipidemia, unspecified; I25.10 Atherosclerotic heart disease of native coronary artery without angina pectoris; I44.7 Left bundle-branch block, unspecified; F32.9 Major depressive disorder, single episode, unspecified; F41.9 Anxiety disorder, unspecified; Z91.013 Allergy to seafood; Z99.2 Dependence on renal dialysis; Z95.5 Presence of coronary angioplasty implant and graft; Z79.899 Other long term (current) drug therapy
CPT/HCPCS: 78452; 83036; 83735; 87081; 87340; 90935; 93005; 93017; 93306; 99285; A9500; J0885; J1644; J2785